=== PATIENT | female | born 1980 | race Caucasian/White ===

== ENCOUNTER 2022-02-18 10:38 | Outpatient (CLI) | payer BC | END 2022-02-18 10:39 | disposition home or self-care (01) | LOC: BICMAMMO 10:38 | PROVIDERS: ATTEND Family Medicine | DX: Z12.31 Encounter for screening mammogram for malignant neoplasm of breast (principal); Z80.3 Family history of malignant neoplasm of breast | CPT/HCPCS: 77063; 77067 ==

== ENCOUNTER 2024-08-03 15:58 | Outpatient (CLI) | payer BC | END 2024-08-03 15:59 | disposition home or self-care (01) | LOC: SCSRAD 15:58 | PROVIDERS: ATTEND Family Medicine | DX: S16.1XXA Strain of muscle, fascia and tendon at neck level, initial encounter (principal); M50.30 Other cervical disc degeneration, unspecified cervical region; M47.812 Spondylosis without myelopathy or radiculopathy, cervical region | CPT/HCPCS: 72050 ==